=== PATIENT | female | born 1985 | race Caucasian/White ===

== ENCOUNTER 2018-12-22 07:01 | Observation (INO) | payer MEDICAID ==
[2018-12-22] MEDS ORDERED: OXYTOCIN 30 UNITS/LR 500 ML IV ×3 (09:00)
[2018-12-22] MEDS ORDERED: LIDOCAINE 1% (MPF) 30 ML INJ INJ (09:00)
[2018-12-22] MEDS ORDERED: MISOPROSTOL 200 MCG TAB PR (09:00)
[2018-12-22] MEDS ORDERED: BUTORPHANOL 1 MG INJ IV (09:00)
[2018-12-22] MEDS ORDERED: CARBOPROST 250 MCG INJ IM (09:00)
[2018-12-22] MEDS ORDERED: BUTORPHANOL 2 MG INJ IV (09:00)
[2018-12-22] MEDS ORDERED: METHYLERGONOVINE 0.2 MG INJ IM (09:00)
[2018-12-22] MEDS: LACTATED RINGER'S 1,000 ML IV (09:32)
[2018-12-22 10:07] LABS: ADD MAN DIFF? NO
[2018-12-22 10:12] LABS: BASOPHILS % 0.4 % (0.0-2.0); EOSINOPHILS # 0.1 10^3/ul (0.0-0.5); EOSINOPHILS % 0.6 % (0.0-7.0); HEMATOCRIT 38.7 % (37.0-47.0); HEMOGLOBIN 12.7 g/dl (12.0-16.0); LYMPHOCYTES # 2.6 10^3/ul (0.8-2.9); LYMPHOCYTES % 27.8 % (15.0-51.0); MEAN CORPUSCULAR HGB CONC 32.8 g/dl (32.0-37.0); MEAN CORPUSCULAR VOLUME 85.4 fl (82.0-101.0); MEAN PLATELET VOLUME 11.9 fl (7.4-10.4); MONOCYTE # 0.6 10^3/ul (0.3-0.9); NEUTROPHIL # 6.1 10^3/ul (1.6-7.5); NEUTROPHILS % 64.7 % (39.0-77.0); PLATELET COUNT 195 10^3/UL (140-415); RED BLOOD COUNT 4.53 10^6/ul (4.20-5.40); RED CELL DISTRIBUTION WIDTH 14.2 % (11.5-14.5)
[2018-12-22 10:12] LABS: WHITE BLOOD COUNT 9.5 10^3/ul (4.8-10.8)
[2018-12-22 10:30] LABS: INR 0.88; PT RATIO 0.9
[2018-12-22 10:32] LABS: PARTIAL THROMBOPLASTIN TIME 26.1 Sec (23.0-35.0)
[2018-12-22 16:16] LABS: RAPID PLASMA REAGIN NONREACTIVE (NR)
== END 2018-12-22 20:06 | disposition home or self-care (01) ==
LOC: OBT 07:01 → L-D 07:01 → OBT 08:38 → L-D 08:30
PROVIDERS: Obstetrics & Gynecology
DX: O47.1 False labor at or after 37 completed weeks of gestation (principal); Z3A.39 39 weeks gestation of pregnancy
CPT/HCPCS: 76815; 76818; 85025; 85610; 85730; 86592; 86850; 86900; 86901; 99217

== ENCOUNTER 2018-12-23 12:32 | Inpatient (IN) | payer SELFPAY, MEDICAID ==
[2018-12-23] MEDS ORDERED: MISOPROSTOL 200 MCG TAB PR (14:00)
[2018-12-23] MEDS ORDERED: LIDOCAINE 1% (MPF) 30 ML INJ INJ (14:00)
[2018-12-23] MEDS ORDERED: IBUPROFEN 600 MG TAB PO (14:00)
[2018-12-23] MEDS ORDERED: BUTORPHANOL 2 MG INJ IV (14:00)
[2018-12-23] MEDS ORDERED: CARBOPROST 250 MCG INJ IM (14:00)
[2018-12-23] MEDS ORDERED: METHYLERGONOVINE 0.2 MG INJ IM (14:00)
[2018-12-23] MEDS ORDERED: OXYTOCIN 30 UNITS/LR 500 ML IV ×2 (14:00)
[2018-12-23] MEDS: OXYTOCIN 30 UNITS/LR 500 ML IV ×2 (14:07→23:20)
[2018-12-23] MEDS: LACTATED RINGER'S 1,000 ML IV ×4 (14:08→23:19)
[2018-12-23 14:23] LABS: ADD MAN DIFF? NO
[2018-12-23 14:25] LABS: BASOPHIL # 0.1 10^3/ul (0.0-0.1); BASOPHILS % 0.5 % (0.0-2.0); EOSINOPHILS % 0.2 % (0.0-7.0); HEMATOCRIT 39.2 % (37.0-47.0); HEMOGLOBIN 12.9 g/dl (12.0-16.0); LYMPHOCYTES # 2.2 10^3/ul (0.8-2.9); MEAN CORPUSCULAR HGB CONC 32.9 g/dl (32.0-37.0); MEAN CORPUSCULAR VOLUME 85.2 fl (82.0-101.0); MEAN PLATELET VOLUME 12.4 fl (7.4-10.4); MONOCYTE # 0.7 10^3/ul (0.3-0.9); MONOCYTES % 6.3 % (0.0-11.0); NEUTROPHIL # 7.9 10^3/ul (1.6-7.5); NEUTROPHILS % 72.4 % (39.0-77.0); PLATELET COUNT 205 10^3/UL (140-415); RED CELL DISTRIBUTION WIDTH 14.3 % (11.5-14.5)
[2018-12-23 14:25] LABS: WHITE BLOOD COUNT 10.9 10^3/ul (4.8-10.8)
[2018-12-23 14:46] LABS: INR 0.85; PROTIME 11.7 Sec (11.9-14.9); PT RATIO 0.9
[2018-12-23 14:47] LABS: PARTIAL THROMBOPLASTIN TIME 25.2 Sec (23.0-35.0)
[2018-12-23] MEDS ORDERED: FENTAnyl 2MCG/ML-ROPIV 0.2% 100 ML (15:04)
[2018-12-23] MEDS ORDERED: FENTAnyl 2MCG/ML-ROPIV 0.2% 100 ML BAG EPI (15:30)
[2018-12-23] MEDS ORDERED: NALOXONE (0.4 MG/ML) INJ IV (15:30)
[2018-12-23] MEDS: MINERAL OIL LIGHT 10 ML VIAL TOP (23:19)
[2018-12-24] MEDS ORDERED: METHYLERGONOVINE 0.2 MG INJ IM
[2018-12-24] MEDS ORDERED: METHYLERGONOVINE 0.2 MG TAB PO
[2018-12-24] MEDS ORDERED: HYDROCODONE/APAP (5/325) TAB PO
[2018-12-24] MEDS ORDERED: ZOLPIDEM 5 MG TAB PO
[2018-12-24] MEDS ORDERED: ONDANSETRON 4 MG INJ IV
[2018-12-24] MEDS ORDERED: CARBOPROST 250 MCG INJ IM
[2018-12-24] MEDS ORDERED: LANOLIN HPA 1 PKT TOP
[2018-12-24] MEDS ORDERED: DIPHENHYDRAMINE 25 MG CAP PO
[2018-12-24] MEDS ORDERED: NA PHOSPHATE/BIPHOS 133 ML ENEMA PR
[2018-12-24] MEDS ORDERED: MISOPROSTOL 200 MCG TAB PR
[2018-12-24] MEDS ORDERED: ACETAMINOPHEN 325 MG TAB PO ×2
[2018-12-24] MEDS ORDERED: MAGNESIUM HYDROXIDE 30ML CUP PO
[2018-12-24] MEDS ORDERED: OXYTOCIN 30 UNITS/LR 500 ML IV
[2018-12-24] MEDS: CEFAZOLIN 1 GM/50 ML (PMX) 50 ML IVPB (00:35)
[2018-12-24] MEDS: IBUPROFEN 600 MG TAB PO ×4 (01:56→18:11)
[2018-12-24] MEDS: LACTATED RINGER'S 1,000 ML IV* ×4 (05:13→23:35)
[2018-12-24] MEDS: OXYTOCIN 30 UNITS/LR 500 ML IV (05:13)
[2018-12-24] MEDS: WITCH HAZEL/GLYCERIN PAD PR (05:48)
[2018-12-24] MEDS: BENZOCAINE 20% 56 ML SPRAY TOP (05:48)
[2018-12-24 08:25] LABS: ADD MAN DIFF? NO
[2018-12-24 08:31] LABS: ABNORMAL IP MESSAGE 1; BASOPHIL # 0.1 10^3/ul (0.0-0.1); BASOPHILS % 0.2 % (0.0-2.0); HEMATOCRIT 31.5 % (37.0-47.0); HEMOGLOBIN 10.5 g/dl (12.0-16.0); LYMPHOCYTES # 1.9 10^3/ul (0.8-2.9); LYMPHOCYTES % 8.1 % (15.0-51.0); MEAN CORPUSCULAR HEMOGLOBIN 28.4 pg (29.0-33.0); MEAN CORPUSCULAR HGB CONC 33.3 g/dl (32.0-37.0); MEAN CORPUSCULAR VOLUME 85.1 fl (82.0-101.0); MEAN PLATELET VOLUME 12.5 fl (7.4-10.4); MONOCYTE # 1.7 10^3/ul (0.3-0.9); MONOCYTES % 7.1 % (0.0-11.0); NEUTROPHIL # 19.7 10^3/ul (1.6-7.5); NEUTROPHILS % 84.1 % (39.0-77.0); PLATELET COUNT 156 10^3/UL (140-415); RED CELL DISTRIBUTION WIDTH 14.6 % (11.5-14.5)
[2018-12-24 08:31] LABS: WHITE BLOOD COUNT 23.4 10^3/ul (4.8-10.8)
[2018-12-24 08:39] LABS: POSITIVE DIFF @See below
[2018-12-24] MEDS: SENNA/DOCUSATE NA (8.6MG/50MG) TAB PO ×2 (09:07→21:10)
[2018-12-24] MEDS: CEFAZOLIN 2 GM/50 ML (PMX) 50 ML IVPB ×2 (10:50→16:17)
[2018-12-24 15:03] LABS: RAPID PLASMA REAGIN NONREACTIVE (NR)
[2018-12-25] MEDS: CEFAZOLIN 2 GM/50 ML (PMX) 50 ML IVPB ×3 (00:03→15:39)
[2018-12-25] MEDS: IBUPROFEN 600 MG TAB PO ×3 (00:03→12:21)
[2018-12-25] MEDS: MAGNESIUM HYDROXIDE 30ML CUP PO (03:59)
[2018-12-25] MEDS: BISACODYL 10 MG SUPP PR (04:00)
[2018-12-25] MEDS: LACTATED RINGER'S 1,000 ML IV* ×2 (07:35→15:35)
[2018-12-25 07:55] LABS: ADD MAN DIFF? NO
[2018-12-25 08:03] LABS: BASOPHILS % 0.2 % (0.0-2.0); EOSINOPHILS % 1.3 % (0.0-7.0); HEMATOCRIT 30.8 % (37.0-47.0); HEMOGLOBIN 10.1 g/dl (12.0-16.0); LYMPHOCYTES # 3.2 10^3/ul (0.8-2.9); LYMPHOCYTES % 19.4 % (15.0-51.0); MEAN CORPUSCULAR HEMOGLOBIN 28.3 pg (29.0-33.0); MEAN CORPUSCULAR HGB CONC 32.8 g/dl (32.0-37.0); MEAN CORPUSCULAR VOLUME 86.3 fl (82.0-101.0); MEAN PLATELET VOLUME 12.1 fl (7.4-10.4); MONOCYTES % 6.5 % (0.0-11.0); NEUTROPHILS % 72.1 % (39.0-77.0); PLATELET COUNT 153 10^3/UL (140-415); RED BLOOD COUNT 3.57 10^6/ul (4.20-5.40); RED CELL DISTRIBUTION WIDTH 14.6 % (11.5-14.5)
[2018-12-25 08:03] LABS: WHITE BLOOD COUNT 16.7 10^3/ul (4.8-10.8)
[2018-12-25 08:04] LABS: EOSINOPHILS # 0.2 10^3/ul (0.0-0.5); MONOCYTE # 1.1 10^3/ul (0.3-0.9)
[2018-12-25] MEDS: SENNA/DOCUSATE NA (8.6MG/50MG) TAB PO (08:26)
[2018-12-25] MEDS: VARICELLA VACCINE LIVE/PF 1,350 UNIT/0.5 ML ML SC* (09:00)
[2018-12-25] MEDS: MEASLES,MUMPS,RUBELLA VACCINE INJ SC* (09:00)
[2018-12-25] MEDS: DIPHTH/TET/ACEL PERTUSS (ADULT) 0.5 ML VIAL IM* (12:22)
== END 2018-12-25 17:15 | disposition home or self-care (01) | DRG 807 ==
LOC: PP1 12-24 00:52 → L-D 12:32
PROVIDERS: Obstetrics & Gynecology
PROC: 10E0XZZ Delivery of Products of Conception, External Approach (ICD-10-PCS; principal; 2018-12-23)
DX: O80 Encounter for full-term uncomplicated delivery (principal); Z37.0 Single live birth; Z3A.39 39 weeks gestation of pregnancy
CPT/HCPCS: 85025; 85610; 85730; 86592; 90715; 90716; 99464